=== PATIENT | male | born 1990 | race Caucasian/White ===

== ENCOUNTER 2022-11-03 18:15 | Emergency (ER) | payer BC, SELFPAY ==
--- NOTE | ~2022-11-03 | XR_ITS ---
EXAM: XR foot RT min 3V DATE: 11/03/2022 18:35 HISTORY: INVERSION INJURY, PROXIMAL LATERAL PAIN AND SWELLING . COMPARISON: None available. FINDINGS: Normal mineralization. No fracture or dislocation. No lytic or blastic lesion. Joint space s are maintained. No erosion or periosteal change. Soft tissues within normal limits. IMPRESSION: No acute osseous finding in the right foot. Reviewed, dictated and finalized at location K.
[2022-11-03 18:22] VITALS: BP 142/73; PULSE 82; RESP 16; TEMP 36.6; O2SAT 99
--- NOTE | 2022-11-03 18:27 | ED.LOWEXIN ---
HPI - Extremity Injury (Lower) General Chief Complaint: Extremity Injury, Lower Stated Complaint: right foot injury Time Seen by Provider: 11/03/22 18:47 Source: patient and RN notes reviewed Mode of arrival: ambulatory Limitations: no limitations History of Present Illness HPI Narrative: 31-year-old male presents with concern for right foot pain. Reports earlier today he rolled the foot causing lateral pain. Reports he has been using an Chidi wrap. Reports it is painful to weightbear. He reports pain at rest, worsening pain with weight-bearing. He reports bruising and swelling has started MD complaint: foot injury Related Data Home Medications Medication Instructions Recorded Confirmed No Home Medications 11/03/22 11/03/22 Allergies Allergy/AdvReac Type Severity Reaction Status Date / Time Anesthetics - Amide Type - Allergy Swelling Verified 11/03/22 18:44 Select A Review of Systems Review of Systems: CONSTITUTIONAL: Denies malaise, chills, sweats, or fever. SKIN: Denies rash or itching, open skin, laceration, abrasion, redness, warmth MUSCULOSKELETAL: Reports right foot pain, swelling, bruising NEUROLOGIC: Denies numbness, weakness All systems reviewed & are unremarkable except as noted in HPI and below PMFSH Comments At time of signature, agree with nursing past medical, surgical, social and family history. There is no relevant family history pertinent to the presenting complaint Exam Narrative: GENERAL: Well-appearing, well-nourished, and in no acute distress. HEAD: Normocephalic, atraumatic. EYES: PERRLA, conjunctivae clear NECK: Supple. CHEST: Speaks in full sentences. No respiratory distress. HEART: Regular rate and rhythm. Normal and equal peripheral pulses. EXTREMITIES: Right ankle, foot, digits have grossly normal strength and sensation, limited range of motion. Mild lateral edema, ecchymosis. Normal sensation with sensitivity to light touch and pain. Lateral foot tenderness. No open wounds, no skin tenting, no devitalized tissue or atrophy, no trophic changes, no obvious deformity, alignment normal, nearby joints and structures intact. Distal pulses palpable and equal bilaterally, skin warm, dry, pink. Capillary refill less than 3 seconds. SKIN: Warm, dry, no rash. NEURO: Alert and oriented x3. PSYCH: Normal mood and affect Course Course Emergency Course: Patient is aware of diagnosis, understands and agrees to treatment plan. Anticipatory guidance given. Patient agrees to follow-up as directed and is aware of reasons to seek care at the emergency department. Portions of this record may have been created with voice recognition software Level of Care: Express Care Visit Vital Signs Vital signs: Reviewed. MDM - Extremity Injury (Lower) MDM Narrative Medical decision making narrative: Patients injury and pain is consistent with musculoskeletal etiology. No signs of neurological or vascular compromise on exam. Compartments and tissues are soft without signs of compartment syndrome. Pain is felt appropriate for further evaluation on an outpatient basis. Imaging Data My impression: Images reviewed, interpreted by radiologist, agree, see report. Radiologist's impression: EXAM:? XR foot RT min 3V DATE: 11/03/2022 18:35 HISTORY: INVERSION INJURY, PROXIMAL LATERAL PAIN AND SWELLING . COMPARISON:? None available. FINDINGS:? Normal mineralization. No fracture or dislocation. No lytic or blastic lesion. Joint spaces are maintained. No erosion or periosteal change. Soft tissues within normal limits. IMPRESSION: No acute osseous finding in the right foot. Critical Care Time Critical Care Time Critical Care Time: No Discharge Plan Discharge Clinical Impression: Foot sprain Patient Disposition: Home, Self-Care Condition: Stable Instructions: Foot Sprain (ED) Additional Instructions: Avoid activities that cause pain until the pain subsides. Ice to the area
[2022-11-03 18:44] VITALS: BP 142/73; PULSE 82; RESP 16; TEMP 36.6; O2SAT 99
== END 2022-11-03 18:55 | disposition home or self-care (01) ==
PROVIDERS: Emergency Provider Nurse Practitioner; PCP Family Medicine
DX: S93.601A Unspecified sprain of right foot, initial encounter (principal); X50.9XXA Other and unspecified overexertion or strenuous movements or postures, initial encounter
CPT/HCPCS: 73630; 99213; G0463